=== PATIENT | male | born 1975 | race Caucasian/White ===

== ENCOUNTER 2025-04-23 15:39 | Emergency (ER) | payer OTHER ==
[~2025-04-23] VITALS: Ht 177.8 cm; Wt 64.9 kg
[2025-04-23 16:20] LABS: APPEARANCE,URINE CLEAR (CLEAR); BLOOD, URINE NEGATIVE Ery/uL (NEGATIVE); LEUKOCYTE ESTERASE ,URINE NEGATIVE (NEGATIVE); NITRITE, URINE NEGATIVE (NEGATIVE); UGLUCOSE NEGATIVE (NEGATIVE)
[2025-04-23] MEDS ORDERED: KETOROLAC TROMETHAMINE 15 MG/ML VIAL ONE (16:27)
[2025-04-23] MEDS: KETOROLAC TROMETHAMINE 15 MG/ML VIAL IM ONE (16:33)
[2025-04-23] MEDS ORDERED: LIDO700A30 TP (17:26)
[2025-04-23] MEDS ORDERED: METH-649 PO (17:26)
[2025-04-23] MEDS ORDERED: IBUP-1490 PO (17:26)
[2025-04-23 18:25] VITALS: BP 110/86; TEMP 98.1; O2SAT 98
== END 2025-04-23 18:26 | disposition home or self-care (01) ==
LOC: ER 15:43
DX: M54.50 Low back pain, unspecified (principal)
CPT/HCPCS: 99285; 96372; 72110; 81003; J1885